=== PATIENT | female | born 1965 | race Hispanic/Latino ===

== ENCOUNTER 2016-11-17 10:16 | Day surgery (SDC) | payer OTHER ==
[~2016-11-17] VITALS: Ht 154.9 cm; Wt 65.3 kg
[~2016-11-17 10:16] MED LIST: 0.9% Sodium Chloride 1,000 ML IV SCH; CHOL200047 PO; LEVO112T23 PO; Sodium Chloride LOK Flush 10 mL Syringe IV PRN; fentaNYL-PF 50 mCg/mL 2 mL Inj IVPUSH PRN
[2016-11-17 10:46] VITALS: BP 161/91; PULSE 80; RESP 12; O2SAT 98
[2016-11-17 12:00] VITALS: BP 152/86; PULSE 93; RESP 16; O2SAT 99
[2016-11-17 12:11] VITALS: BP 102/69; PULSE 86; RESP 16; O2SAT 99
[2016-11-17 12:21] VITALS: BP 114/60; PULSE 76; RESP 16; O2SAT 97
--- NOTE | 2016-11-17 13:21 | ENDO ---
[address] [address] ENDOSCOPY PROCEDURE PATIENT: LEANNE CA : 1965 MR#: [id number] ADMIT: 11/17/2016 JOB ID: [id number] DATE: 11/17/2016 PROCEDURE: Colonoscopy. INDICATION: Patient with a family history of colon polyps. The patient's ASA classification is 1. Mallampati score is 2. MEDICATIONS: 1. Versed 4 mg. 2. Fentanyl 100 mcg. INSTRUMENT USED: PCF H 180 AL. PREPARATION QUALITY: Was good. PROCEDURE DETAILS: After informed consent was obtained, the patient was brought into the GI suite, where she was placed on oxygen via nasal cannula and monitored with continuous pulse oximeter, telemetry and blood pressure monitoring. A time-out was performed. Then, she was placed in the left lateral decubitus position and medications were administered for sedation. Digital rectal examination was performed, which was unremarkable. The colonoscope was then inserted into the rectum and advanced under direct visualization to the cecum, which was identified by the presence of the ileocecal valve and appendiceal orifice. Once the cecum was reached, colonoscope was withdrawn back into the rectum and mucosa and lumen were examined. In the rectum, retroflexion was performed. Following retroflexion, remaining air in the rectum was suctioned, and procedure was completed. FINDINGS: Normal examination from rectum to cecum. IMPRESSION: Normal colonoscopy. RECOMMENDATIONS: Repeat colonoscopy in 10 years, sooner if symptoms should dictate. COMPLICATIONS: None. ESTIMATED BLOOD LOSS: 0.
== END 2016-11-17 23:59 | disposition home or self-care (01) ==
LOC: END 10:16
PROVIDERS: ATTEND Internal Medicine Gastroenterology
DX: Z12.11 Encounter for screening for malignant neoplasm of colon (principal); Z83.71 Family history of colonic polyps; E03.9 Hypothyroidism, unspecified; E55.9 Vitamin D deficiency, unspecified
CPT/HCPCS: G0105; G0500; J2250; J3010; J7030